=== PATIENT | female | born 1975 | race Caucasian/White ===

== ENCOUNTER 2019-12-05 06:05 | Day surgery (SDC) | payer OTHER ==
[~2019-12-05] VITALS: Ht 165.1 cm; Wt 82.6 kg
[~2019-12-05 06:05] MED LIST: CYCL10TA PO; ESCI20TA PO; HYDR200T3 PO; LEFL20TA10 PO; LIDOCAINE 1% MDV 20ML VIAL SQ PRN; LINZ145C PO; OXYB1TAB13 PO; OXYC1TAB15 PO; RABE1TAB PO; SM HTAB3 PO; TIZA4TAB4 PO; TOPI50TA9 PO; ZENP1CAP64 PO
[2019-12-05] MEDS ORDERED: dexameTHASONE 10 MG/1 ML VIAL PRES.FREE (J1100) ONE (06:06)
[2019-12-05] MEDS ORDERED: ROPIvacaine 0.5% 30 ML INJECTION (J2795 PER 1MG) ONE (06:06)
[2019-12-05] MEDS ORDERED: fentaNYL 100 MCG/2 ML INJECTION (J3010) As Ordered ONE (06:38)
[2019-12-05] MEDS ORDERED: MIDAZOLAM INJ 2 MG/2 ML VIAL (J2250) As Ordered ONE (06:38)
[2019-12-05] MEDS ORDERED: HYDR-3715 PO (07:05)
[2019-12-05] MEDS ORDERED: EPINEPHrine 1MG/ML INJ 30ML MD-VIAL As Ordered ONE (07:11)
[2019-12-05] MEDS ORDERED: ROCURONIUM BROMIDE 50 MG/5 ML VIAL As Ordered ONE (07:14)
[2019-12-05] MEDS ORDERED: PROPOFOL 200 MG/20 ML VIAL As Ordered ONE (07:14)
[2019-12-05] MEDS ORDERED: LIDOCAINE 2% INJ 100 MG/5 ML SDV (FOR ANES.) As Ordered ONE (07:14)
[2019-12-05] MEDS ORDERED: VANCOMYCIN 1000 MG/20 ML VIAL (J3370) As Ordered ONE (07:15)
[2019-12-05] MEDS ORDERED: VANCOMYCIN HCL 1,000 MG, VIAL MATE ADAPTER 1 EACH in D5W 250 ML IV ONE (07:15)
[2019-12-05] MEDS ORDERED: LR 1,000 ML IV ONE (07:15)
[2019-12-05] MEDS: fentaNYL 100 MCG/2 ML INJECTION (J3010) IV SCH ×2 (07:28→07:37)
[2019-12-05] MEDS: MIDAZOLAM INJ 2 MG/2 ML VIAL (J2250) IV SCH ×2 (07:28→07:37)
[2019-12-05] MEDS ORDERED: dexameTHASONE 4 MG/ML 1ML VIAL (J1100) As Ordered ONE (07:42)
[2019-12-05] MEDS ORDERED: NEOSTIGMINE 10 MG/10 ML VIAL (J2710) As Ordered ONE (08:30)
[2019-12-05] MEDS ORDERED: ONDANSETRON 4MG/2ML VIAL (J2405) As Ordered ONE (08:30)
[2019-12-05] MEDS ORDERED: METOCLOPRAMIDE INJ 10MG/2ML VIAL (J2765) As Ordered ONE (08:30)
[2019-12-05] MEDS ORDERED: GLYCOPYRROLATE INJ 0.2 MG/ML 2 ML VIAL As Ordered ONE (08:30)
[2019-12-05] MEDS: PERCOCET 5MG/325MG TAB PO PRN ×2 (10:30→12:14)
[2019-12-05] MEDS ORDERED: ONDANSETRON 4MG/2ML VIAL (J2405) IV PRN (11:00)
[2019-12-05] MEDS ORDERED: LR 1,000 ML IV SCH ×2 (11:00→12:00)
[2019-12-05] MEDS ORDERED: fentaNYL 100 MCG/2 ML INJECTION (J3010) IV PRN (11:00)
[2019-12-05] MEDS ORDERED: PERCOCET 5MG/325MG TAB As Ordered ONE (12:07)
[2019-12-05 12:18] VITALS: BP 146/92
--- NOTE | 2019-12-05 16:15 | RO ---
DATE OF PROCEDURE: 12/05/2019 PREOPERATIVE DIAGNOSES 1. Left shoulder possible labral tear. 2. Left shoulder impingement. 3. Left shoulder acromioclavicular joint arthritis. 4. Left shoulder possible rotator cuff tear. POSTOPERATIVE DIAGNOSES 1. 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 2. Left shoulder superior labral tear, type 1. 3. Left shoulder impingement. 4. Left shoulder acromioclavicular joint arthritis. PROCEDURE 1. Left shoulder examination under anesthesia. 2. Left shoulder diagnostic arthroscopy with arthroscopic anterior labral repair. 3. Left shoulder arthroscopic subacromial decompression including acromioplasty. 4. Left shoulder arthroscopic distal clavicle excision. SURGEON: Kameron Ash MD FOUNDER AND CHIEF TECHNICAL OFFICER: VALERIE Sigala ANESTHESIA: General. Preoperative nerve block. IV FLUIDS: Lactated Ringer's. ESTIMATED BLOOD LOSS: Less than 5 mL IMPLANTS: Arthrex 3 mm SutureTak times one and 2.9 mm PushLock times 2 with labral tape. CLOSURE: Nylon. DESCRIPTION OF PROCEDURE: Patient identified in the preoperative holding area. The left shoulder was marked by myself. She had an interscalene nerve block by anesthesia. She was brought to the operating room, placed supine on a well-padded OR table with a beanbag. General anesthesia was induced. She had appropriate IV antibiotics within 1 hour of incision. Examination under anesthesia revealed 180 degrees forward flexion, 90 of external rotation, grade 2 plus anterior load and shift, grade 1 posterior load and shift. Right shoulder had a grade 1 plus anterior load and shift. The patient was then placed into the right side down lateral decubitus position with an axillary roll and all bony prominences were well padded. She had bilateral Venodyne boots for DVT prophylaxis. She was secured to the OR table. The left arm was placed into the Arthrex STaR sleeve, lateral decubitus traction haque, 10 pounds of traction. The left shoulder was then prepped and draped in the normal sterile fashion with Chloraprep. Prior to incision a time-out was performed per hospital protocol. Almaz Zambrano was present the entire procedure and assisted with all essential portions of the procedure included patient positioning, draping, holding the arthroscope, providing axial traction and manipulation to the shoulder during the anterior labral repair, assisting with retrieving sutures and passing sutures. She also performed a wound closure, applied the dressing and sling. The left shoulder was insufflated with lactated Ringer's and then a standard posterior viewing portal made with a #11-blade. 30 degrees arthroscope was introduced into the joint and a diagnostic arthroscopy was carried out. There was no tearing of the rotator cuff. There was either fraying of the upper border of the subscapularis versus frayed tissue in the rotator interval and it turned out to be latter. There was tearing with a fissure at the anterior-inferior labrum and there was no bumper. There is a positive drive-through sign. The humeral head was noted to be somewhat subluxated anterior and inferior. The superior labrum was then inspected. There was what appeared to be a type 1 labral tear. No tearing of the biceps. The articular surface of the supra and infraspinatus were pristine. An anterior working portal was established through the rotator interval just above the subscapularis to give the appropriate angle for drilling into the glenoid for a Bankart repair. Purple Arthrex cannula was placed. Switching stick again demonstrated a fissure with tearing of the anterior-inferior labrum. This required a labral repair. Second superolateral portal was placed through the rotator interval just anterior to the biceps. Shaver was used to debride the tissue that was frayed at the junction of the rotator interval and subscapularis. There was no lift off of the subscapularis doing the posterior lever push maneuver. Next, I used a hooked radiofrequency cautery to develop the plane between articular cartilage and anterior labrum from the equator down to the 06:30 position. Labral elevators then used to subperiosteally elevate labrum and capsule off the anterior glenoid. Once that tissue was successfully mobilized I used a rasp on the anterior glenoid to create a bleeding surface. A ring curette was used to remove 1-2 mm of articular cartilage. I should mention that a shaver was used to perform a chondroplasty to the inferior glenoid where there was some chondromalacia. The humeral head was in good condition. Next, I drilled and placed a 3 mm suture tack at the 7 o'clock position. I used a suture lasso to shuttle the FiberWire sutures through the anterior inferior labrum and capsule making sure to grasp the anterior band of the inferior glenohumeral ligament. My executive assistant to general counsel then applied a posterior drawer to the proximal humerus and I tied arthroscopic knots using alternating half hitches. This nicely restored the anterior-inferior bumper. Next, I shuttled labral tape through the anterior capsule and labrum. Those were passed through 2.9 mm PushLock anchors which were also biocomposite and those anchors were placed at the 8-o'clock and 9-o'clock positions. There was excellent fixation there. This nicely secured the anterior labrum. The repair was probed and found to be tight. The drive-through sign was eliminated. The scope was placed in the anterior superior portal and now humeral head was centrally located on the glenoid. The shoulder was irrigated and drained. Arthroscope placed into the subacromial space where there was moderate bursitis. A lateral working portal was established and an extensive bursectomy was performed with the shaver. There was a moderate size subacromial spur and the bur was used to perform a formal acromioplasty. Next, attention was turned to the AC joint where there was bone on bone contact. Cautery was used to clear out soft tissue from the AC joint, then a bur was used to remove approximately 6-7 mm of distal clavicle. There was a ridge of bone within the superior capsule and a pituitary rongeur was used to remove that. After a complete distal clavicle excision was performed the arthroscope was placed through the anterior portal to get a direct view and ensure that there is no posterior-superior bone remaining. There was a nice open space. The shoulder was then irrigated and drained. Portals closed with nylon suture. A bulky sterile dressing was applied. She was then carefully placed into the R-2 sling. All counts correct times two. Complications none. She was extubated, transferred to PACU in stable condition.
== END 2019-12-05 12:23 | disposition home or self-care (01) ==
LOC: M SDC 06:05
PROVIDERS: ATTEND Orthopaedic Surgery
DX: M25.312 Other instability, left shoulder (principal); M75.42 Impingement syndrome of left shoulder; M13.812 Other specified arthritis, left shoulder; S43.432A Superior glenoid labrum lesion of left shoulder, initial encounter; D64.9 Anemia, unspecified; K21.9 Gastro-esophageal reflux disease without esophagitis; M32.10 Systemic lupus erythematosus, organ or system involvement unspecified; M79.7 Fibromyalgia; F41.9 Anxiety disorder, unspecified; F32.9 Major depressive disorder, single episode, unspecified; Z98.84 Bariatric surgery status; Z79.899 Other long term (current) drug therapy; G43.909 Migraine, unspecified, not intractable, without status migrainosus; Z88.0 Allergy status to penicillin; Z88.2 Allergy status to sulfonamides; Y92.89 Other specified places as the place of occurrence of the external cause; Y93.9 Activity, unspecified
CPT/HCPCS: 29806; 29824; 29826; 64415; C1713; J1100; J2250; J2405; J2710; J2765; J2795; J3370

== ENCOUNTER → 2020-05-19 | Outpatient (CLI) | payer BC ==
[~2020-05-19] MED LIST changes: +CYCL-707 PO; -CYCL10TA PO; +HYDR-3715 PO; -LIDOCAINE 1% MDV 20ML VIAL SQ PRN; +OXYB15TA14 PO; -OXYB1TAB13 PO
== END ==
LOC: M LABSMTC 11:05
PROVIDERS: ATTEND Physical Medicine & Rehabilitation
DX: Z03.818 Encounter for observation for suspected exposure to other biological agents ruled out (principal); Z11.59 Encounter for screening for other viral diseases

== ENCOUNTER → 2020-08-13 | Outpatient (CLI) | payer BC | LOC: M LABSMTC 09:53 | PROVIDERS: ATTEND Physical Medicine & Rehabilitation | DX: Z11.59 Encounter for screening for other viral diseases (principal); Z20.828 Contact with and (suspected) exposure to other viral communicable diseases ==

== ENCOUNTER → 2020-10-15 | Outpatient (CLI) | payer BC | LOC: M LABSMTC 10:17 | PROVIDERS: ATTEND Physical Medicine & Rehabilitation | DX: Z01.812 Encounter for preprocedural laboratory examination (principal); Z20.828 Contact with and (suspected) exposure to other viral communicable diseases ==

== ENCOUNTER → 2021-04-30 | Outpatient (CLI) | payer BC ==
[~2021-04-30] MED LIST changes: -ESCI20TA PO; +ESCI20TA16 PO; -RABE1TAB PO; +RABE1TAB4 PO
[2021-04-30 13:32] LABS: PLATELET COUNT, AUTOMATED 457 10^3/uL (150-450)
[2021-04-30 13:43] LABS: INR 1.02; PROTHROMBIN TIME 13.6 SECONDS (12.5-14.3)
[2021-04-30 13:44] LABS: PARTIAL THROMBOPLASTIN TIME 27.5 SECONDS (24.2-38.5)
== END ==
LOC: M PLALAB 10:55
PROVIDERS: ATTEND Physical Medicine & Rehabilitation
DX: Z01.812 Encounter for preprocedural laboratory examination (principal)

== ENCOUNTER → 2022-04-13 | Outpatient (CLI) | payer BC ==
[~2022-04-13] MED LIST changes: +LEFL10TA12 PO; -LEFL20TA10 PO; -OXYC1TAB15 PO; +OXYC7.5T3 PO; +TIZA10TA PO; -TIZA4TAB4 PO
== END ==
LOC: M PLAIMG 10:05
PROVIDERS: ATTEND Physician Assistant
DX: M51.16 Intervertebral disc disorders with radiculopathy, lumbar region (principal); M50.10 Cervical disc disorder with radiculopathy, unspecified cervical region

== ENCOUNTER → 2023-03-23 | Outpatient (CLI) | payer BC ==
[~2023-03-23] MED LIST changes: +TOPI-254 PO; -TOPI50TA9 PO
== END ==
LOC: M PLAIMG 06:36
PROVIDERS: ATTEND Physician Assistant
DX: M51.15 Intervertebral disc disorders with radiculopathy, thoracolumbar region (principal)

== ENCOUNTER → 2025-01-02 | Outpatient (CLI) | payer BC ==
[~2025-01-02] MED LIST changes: -HYDR200T3 PO; +HYDR200T46 PO; +TOPI-21 PO; -TOPI-254 PO
== END ==
LOC: M WHC 14:43
PROVIDERS: ATTEND Physical Therapist
DX: Z12.31 Encounter for screening mammogram for malignant neoplasm of breast (principal)